=== PATIENT | female | born 1950 | race Caucasian/White ===

== ENCOUNTER 2018-09-26 00:56 | Inpatient (IN) | payer MEDICARE, OTHER ==
[~2018-09-26] VITALS: Ht 154.9 cm; Wt 79.4 kg
[2018-09-26] MEDS ORDERED: SERT25TA PO (12:55)
[2018-09-26] MEDS ORDERED: ATOR20TA PO (12:55)
[2018-09-26] MEDS ORDERED: LACO50TA2 PO (12:55)
[2018-09-26] MEDS ORDERED: TRIA1CAP6 PO (12:55)
[2018-09-26] MEDS ORDERED: GLIM2TAB2 PO (12:55)
[2018-09-26] MEDS ORDERED: LORAZEPAM (12:55)
[2018-09-26] MEDS ORDERED: BACL20TA PO (12:55)
[2018-09-26] MEDS ORDERED: LEVE1000 PO (12:55)
[2018-09-26] MEDS ORDERED: LAMO25TA10 PO (12:55)
[2018-09-26] MEDS ORDERED: ASPI-605 PO (12:55)
[2018-09-26] MEDS ORDERED: CLOP75TA15 PO (12:55)
[2018-09-26] MEDS ORDERED: CHOL200026 PO (13:18)
[2018-09-26 16:00] VITALS: BP 110/71
[2018-09-26] MEDS ORDERED: INSULIN REGULAR, HUMAN 100 UNIT/ML 3 ML VIAL SQ PRN (16:00)
[2018-09-26] MEDS ORDERED: DEXTROSE 50%-WATER 50 ML DISP.SYRIN IV PRN (16:00)
[2018-09-26 16:47] VITALS: BP 110/71
[2018-09-26] MEDS: BLOOD SUGAR DIAGNOSTIC 1 EACH STRIP VI SCH ×2 (17:58→21:34)
[2018-09-26] MEDS: LACOSAMIDE 50 MG TABLET PO SCH (17:58)
[2018-09-26] MEDS: BACLOFEN (10 MG) 10 MG TABLET PO SCH (17:58)
[2018-09-26] MEDS ORDERED: TEMAZEPAM 7.5 MG CAPSULE PO PRN (18:00)
[2018-09-26] MEDS ORDERED: MAG HYDROX/AL HYDROX/SIMETH 30 ML UDC PO PRN (18:00)
[2018-09-26] MEDS ORDERED: MAGNESIUM HYDROXIDE 30 ML UDC PO PRN (18:00)
[2018-09-26] MEDS ORDERED: BLOOD SUGAR DIAGNOSTIC 1 EACH STRIP IN ONE (18:00)
[2018-09-26] MEDS ORDERED: clonazePAM 0.5 MG TABLET PO PRN (18:00)
[2018-09-26] MEDS: CHOLECALCIFEROL 1,000 UNIT TABLET (VIT D3) PO SCH (18:00)
[2018-09-26] MEDS: *INSULIN REGULAR(HUMULIN R)HUM 100 UNIT/ML VIAL SQ PRN (18:02)
[2018-09-26 20:29] VITALS: BP 141/58
[2018-09-26] MEDS: ARIPIPRAZOLE 5 MG TABLET PO SCH (21:12)
[2018-09-26] MEDS: ATORVASTATIN 40 MG TABLET PO SCH (21:12)
[2018-09-26] MEDS: LEVETIRACETAM (250 MG) 250 MG TABLET PO SCH (21:12)
[2018-09-26] MEDS: MIRTAZAPINE 15 MG TABLET PO SCH (21:14)
[2018-09-27 07:07] LABS: ALBUMIN 3.2 g/dL (3.4-5.0); BILIRUBIN,TOTAL 0.3 mg/dL (0.2-1.0); CALCIUM, SERUM 9.3 mg/dL (8.5-10.1); CREATININE 0.9 mg/dL (0.6-1.3); POTASSIUM 3.8 mmol/L (3.5-5.1); TOTAL PROTEIN, SERUM 6.5 g/dL (6.4-8.2)
[2018-09-27] MEDS: BLOOD SUGAR DIAGNOSTIC 1 EACH STRIP VI SCH ×5 (07:30→21:08)
[2018-09-27 08:00] VITALS: BP 114/72
[2018-09-27 08:03] LABS: CHOLESTEROL 113 mg/dL (<200); HDL CHOLESTEROL 42 mg/dL (40-60); LDL 60 mg/dL (0-99); TRIGLYCERIDES 69 mg/dL (30-150)
[2018-09-27] MEDS: CLOPIDOGREL BISULFATE 75 MG TABLET PO SCH (09:55)
[2018-09-27] MEDS: CHOLECALCIFEROL 1,000 UNIT TABLET (VIT D3) PO SCH (09:55)
[2018-09-27] MEDS: ASPIRIN EC 81 MG TABLET.DR PO SCH (09:55)
[2018-09-27] MEDS: LEVETIRACETAM (250 MG) 250 MG TABLET PO SCH ×2 (09:55→20:33)
[2018-09-27] MEDS: LACOSAMIDE 50 MG TABLET PO SCH ×3 (09:55→18:02)
[2018-09-27] MEDS: GLIMEPIRIDE 1 MG TABLET PO SCH (09:55)
[2018-09-27] MEDS: BACLOFEN (10 MG) 10 MG TABLET PO SCH ×2 (09:55→18:01)
[2018-09-27] MEDS: TRIAMTERENE/HYDROCHLOROTHIAZID (37.5/25MG) 1 UDCAP PO SCH (10:00)
[2018-09-27 16:00] VITALS: BP 110/71
[2018-09-27] MEDS: *INSULIN REGULAR(HUMULIN R)HUM 100 UNIT/ML VIAL SQ PRN (18:44)
[2018-09-27 20:23] VITALS: BP 107/48
[2018-09-27] MEDS: ARIPIPRAZOLE 5 MG TABLET PO SCH (20:33)
[2018-09-27] MEDS: MIRTAZAPINE 15 MG TABLET PO SCH (20:33)
[2018-09-27] MEDS: ATORVASTATIN 40 MG TABLET PO SCH (20:33)
[2018-09-28] MEDS ORDERED: IPRATROPIUM NEB FS 0.5 MG/2.5 ML AMPUL.NEB ONE (04:13)
[2018-09-28] MEDS ORDERED: ALBUTEROL FS 2.5 MG/3 ML VIAL.NEB ONE (04:13)
[2018-09-28] MEDS: BLOOD SUGAR DIAGNOSTIC 1 EACH STRIP VI SCH ×4 (07:39→21:07)
[2018-09-28 08:00] VITALS: BP 106/70
[2018-09-28] MEDS: BACLOFEN (10 MG) 10 MG TABLET PO SCH ×2 (08:31→16:10)
[2018-09-28] MEDS: LEVETIRACETAM (250 MG) 250 MG TABLET PO SCH ×2 (08:32→20:54)
[2018-09-28] MEDS: LACOSAMIDE 50 MG TABLET PO SCH ×3 (08:32→16:10)
[2018-09-28] MEDS: ASPIRIN EC 81 MG TABLET.DR PO SCH (08:32)
[2018-09-28] MEDS: GLIMEPIRIDE 1 MG TABLET PO SCH (08:32)
[2018-09-28] MEDS: CHOLECALCIFEROL 1,000 UNIT TABLET (VIT D3) PO SCH (08:32)
[2018-09-28] MEDS: CLOPIDOGREL BISULFATE 75 MG TABLET PO SCH (08:33)
[2018-09-28] MEDS: TRIAMTERENE/HYDROCHLOROTHIAZID (37.5/25MG) 1 UDCAP PO SCH (08:48)
[2018-09-28 16:00] VITALS: BP 147/69
[2018-09-28 20:52] VITALS: BP 106/63
[2018-09-28] MEDS: ARIPIPRAZOLE 5 MG TABLET PO SCH (20:54)
[2018-09-28] MEDS: ATORVASTATIN 40 MG TABLET PO SCH (20:55)
[2018-09-28] MEDS: MIRTAZAPINE 15 MG TABLET PO SCH (20:55)
[2018-09-28] MEDS: ACETAMINOPHEN 325 MG TABLET PO PRN (21:18)
[2018-09-29 08:00] VITALS: BP 96/69
[2018-09-29] MEDS: BLOOD SUGAR DIAGNOSTIC 1 EACH STRIP VI SCH ×4 (08:28→21:32)
[2018-09-29] MEDS: BACLOFEN (10 MG) 10 MG TABLET PO SCH ×2 (08:29→16:25)
[2018-09-29] MEDS: LEVETIRACETAM (250 MG) 250 MG TABLET PO SCH ×2 (08:29→21:05)
[2018-09-29] MEDS: GLIMEPIRIDE 1 MG TABLET PO SCH (08:29)
[2018-09-29] MEDS: ASPIRIN EC 81 MG TABLET.DR PO SCH (08:29)
[2018-09-29] MEDS: LACOSAMIDE 50 MG TABLET PO SCH ×3 (08:29→16:25)
[2018-09-29] MEDS: CLOPIDOGREL BISULFATE 75 MG TABLET PO SCH (08:29)
[2018-09-29] MEDS: CHOLECALCIFEROL 1,000 UNIT TABLET (VIT D3) PO SCH (08:29)
[2018-09-29] MEDS: TRIAMTERENE/HYDROCHLOROTHIAZID (37.5/25MG) 1 UDCAP PO SCH (08:30)
[2018-09-29 16:00] VITALS: BP 98/63
[2018-09-29] MEDS ORDERED: Z GUARD REMEDY 2 OZ OINT TP PRN (18:30)
[2018-09-29 20:29] VITALS: BP 149/67
[2018-09-29] MEDS: MIRTAZAPINE 15 MG TABLET PO SCH (21:32)
[2018-09-29] MEDS: ATORVASTATIN 40 MG TABLET PO SCH (21:32)
[2018-09-29] MEDS: ARIPIPRAZOLE 5 MG TABLET PO SCH (21:32)
[2018-09-30] MEDS: ACETAMINOPHEN 325 MG TABLET PO PRN (06:02)
[2018-09-30 08:00] VITALS: BP 129/54
[2018-09-30] MEDS: LEVETIRACETAM (250 MG) 250 MG TABLET PO SCH ×2 (08:35→21:04)
[2018-09-30] MEDS: TRIAMTERENE/HYDROCHLOROTHIAZID (37.5/25MG) 1 UDCAP PO SCH (08:35)
[2018-09-30] MEDS: LACOSAMIDE 50 MG TABLET PO SCH ×3 (08:35→16:58)
[2018-09-30] MEDS: GLIMEPIRIDE 1 MG TABLET PO SCH (08:35)
[2018-09-30] MEDS: BLOOD SUGAR DIAGNOSTIC 1 EACH STRIP VI SCH ×4 (08:35→21:05)
[2018-09-30] MEDS: CHOLECALCIFEROL 1,000 UNIT TABLET (VIT D3) PO SCH (08:36)
[2018-09-30] MEDS: BACLOFEN (10 MG) 10 MG TABLET PO SCH ×2 (08:36→16:58)
[2018-09-30] MEDS: CLOPIDOGREL BISULFATE 75 MG TABLET PO SCH (08:36)
[2018-09-30] MEDS: ASPIRIN EC 81 MG TABLET.DR PO SCH (08:36)
[2018-09-30 16:00] VITALS: BP 101/51
[2018-09-30] MEDS: LamoTRIgine 25 MG TABLET PO SCH (16:58)
[2018-09-30] MEDS ORDERED: LORAZEPAM 0.5 MG TABLET PO PRN (17:30)
[2018-09-30 20:00] VITALS: BP 149/71
[2018-09-30] MEDS: ARIPIPRAZOLE 5 MG TABLET PO SCH (21:05)
[2018-09-30] MEDS: ATORVASTATIN 40 MG TABLET PO SCH (21:05)
[2018-09-30] MEDS: MIRTAZAPINE 15 MG TABLET PO SCH (21:05)
[2018-09-30] MEDS: *INSULIN REGULAR(HUMULIN R)HUM 100 UNIT/ML VIAL SQ PRN (21:07)
[2018-10-01] MEDS: BLOOD SUGAR DIAGNOSTIC 1 EACH STRIP VI SCH ×4 (07:59→22:19)
[2018-10-01 08:00] VITALS: BP 116/85
[2018-10-01] MEDS: CHOLECALCIFEROL 1,000 UNIT TABLET (VIT D3) PO SCH (09:11)
[2018-10-01] MEDS: BACLOFEN (10 MG) 10 MG TABLET PO SCH ×2 (09:11→16:50)
[2018-10-01] MEDS: GLIMEPIRIDE 1 MG TABLET PO SCH (09:11)
[2018-10-01] MEDS: LamoTRIgine 25 MG TABLET PO SCH (09:12)
[2018-10-01] MEDS: LEVETIRACETAM (250 MG) 250 MG TABLET PO SCH ×2 (09:12→22:19)
[2018-10-01] MEDS: ASPIRIN EC 81 MG TABLET.DR PO SCH (09:12)
[2018-10-01] MEDS: CLOPIDOGREL BISULFATE 75 MG TABLET PO SCH (09:12)
[2018-10-01] MEDS: LACOSAMIDE 50 MG TABLET PO SCH ×3 (09:12→16:50)
[2018-10-01] MEDS: TRIAMTERENE/HYDROCHLOROTHIAZID (37.5/25MG) 1 UDCAP PO SCH (09:18)
[2018-10-01 16:00] VITALS: BP 119/83
[2018-10-01] MEDS: ARIPIPRAZOLE 5 MG TABLET PO SCH (22:18)
[2018-10-01] MEDS: MIRTAZAPINE 15 MG TABLET PO SCH (22:19)
[2018-10-01] MEDS: ATORVASTATIN 40 MG TABLET PO SCH (22:19)
[2018-10-02] MEDS: BLOOD SUGAR DIAGNOSTIC 1 EACH STRIP VI SCH ×4 (07:35→22:07)
[2018-10-02 08:00] VITALS: BP 138/56
[2018-10-02] MEDS: LamoTRIgine 25 MG TABLET PO SCH (09:34)
[2018-10-02] MEDS: CHOLECALCIFEROL 1,000 UNIT TABLET (VIT D3) PO SCH (09:34)
[2018-10-02] MEDS: CLOPIDOGREL BISULFATE 75 MG TABLET PO SCH (09:34)
[2018-10-02] MEDS: BACLOFEN (10 MG) 10 MG TABLET PO SCH ×2 (09:34→17:02)
[2018-10-02] MEDS: GLIMEPIRIDE 1 MG TABLET PO SCH (09:34)
[2018-10-02] MEDS: TRIAMTERENE/HYDROCHLOROTHIAZID (37.5/25MG) 1 UDCAP PO SCH (09:35)
[2018-10-02] MEDS: LACOSAMIDE 50 MG TABLET PO SCH ×3 (09:35→17:02)
[2018-10-02] MEDS: ASPIRIN EC 81 MG TABLET.DR PO SCH (09:35)
[2018-10-02] MEDS: LEVETIRACETAM (250 MG) 250 MG TABLET PO SCH ×2 (09:35→22:01)
[2018-10-02] MEDS: CLOTRIMAZOLE 1% 15 GM TUBE TP SCH ×2 (11:15→17:02)
[2018-10-02 16:00] VITALS: BP 127/61
[2018-10-02 20:00] VITALS: BP 126/64
[2018-10-02] MEDS: ATORVASTATIN 40 MG TABLET PO SCH (22:01)
[2018-10-02] MEDS: MIRTAZAPINE 15 MG TABLET PO SCH (22:01)
[2018-10-02] MEDS: ARIPIPRAZOLE 5 MG TABLET PO SCH (22:01)
[2018-10-03] MEDS: BLOOD SUGAR DIAGNOSTIC 1 EACH STRIP VI SCH (07:43)
[2018-10-03] MEDS: CHOLECALCIFEROL 1,000 UNIT TABLET (VIT D3) PO SCH (08:25)
[2018-10-03] MEDS: LACOSAMIDE 50 MG TABLET PO SCH (08:25)
[2018-10-03 08:27] VITALS: BP 99/65
[2018-10-03] MEDS: TRIAMTERENE/HYDROCHLOROTHIAZID (37.5/25MG) 1 UDCAP PO SCH (08:27)
[2018-10-03] MEDS: ASPIRIN EC 81 MG TABLET.DR PO SCH (08:27)
[2018-10-03] MEDS: BACLOFEN (10 MG) 10 MG TABLET PO SCH (08:28)
[2018-10-03] MEDS: LamoTRIgine 25 MG TABLET PO SCH (08:28)
[2018-10-03] MEDS: LEVETIRACETAM (250 MG) 250 MG TABLET PO SCH (08:28)
[2018-10-03] MEDS: CLOPIDOGREL BISULFATE 75 MG TABLET PO SCH (08:31)
[2018-10-03] MEDS: GLIMEPIRIDE 1 MG TABLET PO SCH (08:34)
[2018-10-03] MEDS: CLOTRIMAZOLE 1% 15 GM TUBE TP SCH (09:24)
== END 2018-10-03 12:15 | disposition home or self-care (01) | DRG 885 ==
LOC: GPS 12:15 → GPSOV1 10-01 19:58
PROVIDERS: ADMIT Psychiatry & Neurology Psychiatry; ATTEND Internal Medicine
DX: F33.2 Major depressive disorder, recurrent severe without psychotic features (principal); F23 Brief psychotic disorder; R45.851 Suicidal ideations; I69.951 Hemiplegia and hemiparesis following unspecified cerebrovascular disease affecting right dominant side; E44.0 Moderate protein-calorie malnutrition; I10 Essential (primary) hypertension; G40.909 Epilepsy, unspecified, not intractable, without status epilepticus; I25.10 Atherosclerotic heart disease of native coronary artery without angina pectoris; E11.9 Type 2 diabetes mellitus without complications; F41.9 Anxiety disorder, unspecified; E88.09 Other disorders of plasma-protein metabolism, not elsewhere classified; Z68.33 Body mass index [BMI] 33.0-33.9, adult
CPT/HCPCS: 36415; 80053-TC; 80061-TC; 80175; 82962-TC; 87081-TC; J1815